=== PATIENT | male | born 1965 | race Caucasian/White ===

== ENCOUNTER 2019-10-04 10:45 | Emergency (ER) | payer BC ==
[2019-10-04] MEDS ORDERED: Albuterol/Ipratropium 3.0-0.5 MG/3 ML Neb Soln NEB ONE (10:58)
[2019-10-04] MEDS ORDERED: Albuterol 0.083% 2.5 MG/3 ML Neb Soln ONE (11:11)
--- NOTE | 2019-10-04 11:15 | EDM.PDOC ---
ED HPI GENERAL MEDICAL PROBLEM - General Chief Complaint: Respiratory Problem Stated Complaint: SOB Time Seen by Provider: 10/04/19 11:10 Source of Information: Reports: Patient, RN Notes Reviewed History Limitations: Reports: No Limitations - History of Present Illness INITIAL COMMENTS - FREE TEXT/NARRATIVE: Patient is a 53-year-old male who presents to the ED for the evaluation of his increasing shortness of breath. Patient was sent here from the [facility]. The patient notes that he has been having some increased difficulty breathing for the last 2 to 3 weeks, and that he ran out of his albuterol inhaler 2 days ago. He notes a history of asthma, he does not take inhaled steroids for this. He does not have a primary care provider in the area. His O2 sats at time of triage around 78% on room air so oxygen was placed then. He is a smoker, 1 pack/day for the last 30 years, but denies any drug use or alcohol use. He does not think he has been around any other sick-like contacts , he has had no recent travel. He is not on any other regular medications other than the as needed albuterol. He does not have any allergies, nor does he have any other past medical history. He denies any sort of fever/chills, chest pain, nausea/vomiting/diarrhea, or any other sick-like symptoms. - Related Data Allergies Allergy/AdvReac Type Severity Reaction Status Date / Time No Known Allergies Allergy Verified 10/04/19 11:10 Home Meds: Home Meds Albuterol Sulfate [Albuterol Sulfate Hfa] 1 - 2 puff INH Q4H PRN 10/04/19 [ History] Albuterol [Ventolin HFA] 1 puff INH Q4H PRN #1 inh 10/04/19 [Rx] Fluticasone Propion/Salmeterol [Fluticasone-Salmeterol 250-50] 1 puff IH BID #1 inh 10/04/19 [Rx] methylPREDNISolone [Medrol Dose Pack] 4 mg PO ASDIRECTED #1 dospk 10/04/19 [Rx] Past Medical History Respiratory History: Reports: Asthma Social & Family History - Tobacco Use Smoking Status *Q: Current Every Day Smoker Tobacco Use Within Last Twelve Months: Cigarettes Years of Tobacco use: 30 Packs/Tins Daily: 1 - Alcohol Use Alcohol Use History: No - Recreational Drug Use Recreational Drug Use: No ED ROS GENERAL - Review of Systems Review Of Systems: See Below Constitutional: Denies: Fever, Chills Respiratory: Reports: Shortness of Breath, Wheezing, Cough Cardiovascular: Denies: Chest Pain GI/Abdominal: Denies: Abdominal Pain, Constipation, Diarrhea, Nausea, Vomiting Skin: Denies: Cyanosis Neurological: Denies: Dizziness ED EXAM, GENERAL - Physical Exam Exam: See Below Exam Limited By: No Limitations General Appearance: Alert, WD/WN, No Apparent Distress Eye Exam: Bilateral Eye: EOMI, Normal Inspection, PERRL Ears: Normal External Exam Nose: Normal Inspection Throat/Mouth: Normal Inspection, Normal Lips, Normal Teeth, Normal Gums, Normal Oropharynx, Normal Voice, No Airway Compromise Head: Atraumatic, Normocephalic Neck: Normal Inspection Respiratory/Chest: Chest Non-Tender, Respiratory Distress (pt is belly breathing ), Decreased Breath Sounds (diffuse bilaterally), Wheezing (mild in lung bases) Cardiovascular: Normal Peripheral Pulses, Regular Rate, Rhythm, No Edema, No Murmur Peripheral Pulses: 3+: Radial (L), Radial (R) Extremities: Normal Inspection, Normal Capillary Refill Neurological: Alert, Oriented, Normal Cognition, No Motor/Sensory Deficits Psychiatric: Normal Affect, Normal Mood Skin Exam: Warm, Dry, Intact, Normal Color, No Rash Course - Vital Signs Last Recorded V/S: Last Vital Signs Temp 97.9 F 10/04/19 10:45 Pulse 92 10/04/19 10:45 Resp 24 H 10/04/19 10:45 BP 140/90 10/04/19 10:45 Pulse Ox 94 L 10/04/19 11:19 - Orders/Labs/Meds Orders: Active Orders 24 hr Category Date Time Status RT Aerosol Therapy [RC] ASDIRECTED Care 10/04/19 10:58 Active RT Aerosol Therapy [RC] ASDIRECTED Care 10/04/19 11:16 Ordered Labs: Laboratory Tests 10/04/19 10/04/19 Range/Units 11:00 11:00 WBC 12.45 H (4.23-9.07) K/mm3 RBC 5.41 (4.63-6.08) M/mm3 Hgb 16.7 (13.7-17.5) gm/dl Hct 49.7 (40.1-51.0) % MCV 91.9 (79.0-92.2) fl MCH 30.9 (25.7-32.2) pg MCHC 33.6 (32.2-35.5) g/dl RDW Std Deviation 43.0 (35.1-43.9) fL Plt Count 286 (163-337) K/mm3 MPV 10.0 (9.4-12.3) fl Neutrophils % (Manual) 47 (40-60) % Band Neutrophils % 0 (0-10) % Lymphocytes % (Manual) 38 (20-40) % Atypical Lymphs % 0 % Monocytes % (Manual) 8 (2-10) % Eosinophils % (Manual) 7 (0.8-7.0) % Basophils % (Manual) 0 L (0.2-1.2) Platelet Estimate Adequate Anisocytosis 1+ slight RBC Morph Comment Not Reportable Sodium 139 (136-145) mEq/L Potassium 4.3 (3.5-5.1) mEq/L Chloride 105 (98-107) mEq/L Carbon Dioxide 24 (21-32) mEq/L Anion Gap 14.3 (5-15) BUN 21 H (7-18) mg/dL Creatinine 0.8 (0.7-1.3) mg/dL Est Cr Clr Drug Dosing 105.13 mL/min Estimated GFR (MDRD) > 60 (>60) mL/min BUN/Creatinine Ratio 26.3 H (14-18) Glucose 103 (74-106) mg/dL Calcium 9.1 (8.5-10.1) mg/dL Total Bilirubin 0.6 (0.2-1.0) mg/dL AST 30 (15-37) U/L ALT 35 (16-63) U/L Alkaline Phosphatase 74 (46-116) U/L Total Protein 7.6 (6.4-8.2) g/dl Albumin 4.3 (3.4-5.0) g/dl Globulin 3.3 gm/dL Albumin/Globulin Ratio 1.3 (1-2) Meds: Medications Discontinued Medications Generic Name Dose Route Start Last Admin Trade Name Freq PRN Reason Stop Dose Admin Albuterol Confirm 10/04/19 11:11 10/04/19 11:19 Proventil Neb Soln Administered 10/04/19 11:12 Not Given Dose 2.5 mg .ROUTE .STK-MED ONE Albuterol 2.5 mg 10/04/19 11:16 10/04/19 11:18 Proventil Neb Soln NEB 10/04/19 11:17 2.5 mg ONETIME ONE Administration Albuterol 2.5 mg 10/04/19 12:37 10/04/19 12:58 Proventil Neb Soln NEB 10/04/19 12:38 2.5 mg ONETIME ONE Administration Albuterol/Ipratropium 3 ml 10/04/19 10:58 10/04/19 11:08 Duoneb 3.0-0.5 Mg/3 Ml NEB 10/04/19 10:59 3 ml ONETIME ONE Administration Methylprednisolone Sodium Succinate 125 mg 10/04/19 12:08 10/04/19 12:54 Solu-Medrol IVPUSH 10/04/19 12:09 125 mg ONETIME ONE Administration - Re-Assessments/Exams Free Text/Narrative Re-Assessment/Exam: 10/04/19 11:19 Patient presents to the ED for the evaluation of his increasing shortness of breath. I will do no nebulizers x3 at this time. RN on triage did order a DuoNeb to start with and he will receive 2 more albuterol nebulizers, basic labs will be obtained with a chest x-ray as well for evaluation. 10/04/19 13:38 Upon reassessment of the patient, he still has some low oxygen levels, it was around 88-90% on 2 L of oxygen, I did shut his oxygen off for about 1/2-hour, and he is still baseline at about 88% on room air. He is not complaining of any increasing shortness of breath. Due to his history of being a pretty heavy smoker, I do believe this is probably his normal baseline. Again he is not complaining of any shortness of breath, and would like to be discharged home even with his O2 sats being a little bit lower than normal. He is aware that it might be due to him smoking. At this time I will provide him with an albuterol inhaler, start him on Advair Diskus inhaler, which he told nursing that he uses his albuterol inhaler 3 or 4 times a day. With a burst of prednisone for further management. He was told to stop smoking, and to get a primary care provider to follow his health. He will try to do as such. Departure - Departure Time of Disposition: 13:43 Disposition: Home, Self-Care 01 Condition: Fair Clinical Impression: Asthma exacerbation Qualifiers: Asthma severity: moderate Asthma persistence: unspecified Qualified Code(s): J45.901 - Unspecified asthma with (acute) exacerbation - Discharge Information *PRESCRIPTION DRUG MONITORING PROGRAM REVIEWED*: No *COPY OF PRESCRIPTION DRUG MONITORING REPORT IN PATIENT AARTI: No Instructions: Steps to Quit Smoking, [id number], Asthma, Adult, [id number] , How to Use a Dry Powder Inhaler, [id number] Referrals: PCP,None [Primary Care Provider] - Forms: ED Department Discharge Additional Instructions: You were evaluated in the ER today regarding your increased respiratory difficulty and low oxygen levels. You were given multiple nebulizers in the ER as well as some IV steroids, this did seem to help relieve some of your symptoms. Chest x-ray shows no sign of a consolidation like pneumonia or other worrisome findings. There were some emphysema-like changes, which can be attributed to your smoking history. Laboratory evaluation was within normal limits. At the time of your discharge, your oxygen level is still mildly low, but this is likely be due to your smoking history. Recommend that you try to quit smoking. You have been given a prescription for an albuterol inhaler, and Advair inhaler , and a Medrol dose pack. Please take the albuterol inhaler, 1 to 2 puffs every 4 hours for the next few days, then taper to 3 times a day, 2 times a day , and so forth until it is more of a PRN basis. You will need to take the Advair inhaler, 1 puff 2 times a day scheduled. Please take the Medrol dose pack as outlined on the manufacture label. It is highly recommended that you follow-up with a primary care provider, our clinic number [phone], the [place] [facility] is [phone]. Any family practice provider would be able to provide you with the services. It is highly recommended that you get pulmonary function test to figure out what sort of lung function you do currently have. Please return to the ER at any time if your symptoms change or worsen. Sepsis Event Note - Focused Exam Vital Signs: Vital Signs Temp Pulse Resp BP Pulse Ox Pulse Ox 10/04/19 11:19 94 L 10/04/19 11:16 90 L 10/04/19 11:08 93 L 10/04/19 10:45 97.9 F 92 24 H 140/90 78 L Date Exam was Performed: 10/04/19 Time Exam was Performed: 13:38 - My Orders Last 24 Hours: My Active Orders 10/04/19 10:58 RT Aerosol Therapy [RC] ASDIRECTED 10/04/19 11:16 RT Aerosol Therapy [RC] ASDIRECTED - Assessment/Plan Last 24 Hours: My Active Orders 10/04/19 10:58 RT Aerosol Therapy [RC] ASDIRECTED 10/04/19 11:16 RT Aerosol Therapy [RC] ASDIRECTED
[2019-10-04] MEDS ORDERED: Albuterol 0.083% 2.5 MG/3 ML Neb Soln NEB ONE ×2 (11:16→12:37)
[2019-10-04] MEDS ORDERED: methylPREDNISolone Sodium Succinate 125 MG/2 ML SDV IVPUSH ONE (12:08)
--- NOTE | 2019-10-04 12:15 | CR ---
Chest: Two views of the chest were obtained. Comparison: No prior chest x-ray. Heart size and mediastinum are normal. Lungs appear hyperinflated on the lateral view suggesting emphysematous change. No acute parenchymal change is appreciated. Bony structures appear unremarkable for the patient's age. Impression: 1. Emphysematous change. Nothing acute is otherwise seen on two-view chest x-ray. Diagnostic code #2 This report was dictated in MDT
== END 2019-10-04 14:00 | disposition home or self-care (01) ==
LOC: JD.ED 10:45
DX: J45.901 Unspecified asthma with (acute) exacerbation (principal); F17.210 Nicotine dependence, cigarettes, uncomplicated
CPT/HCPCS: 36415; 71046; 80053; 85007; 85027; 94640; 96374; 99285; J2930; 99282; J7620-GY